=== PATIENT | female | born 1965 | race Caucasian/White ===

== ENCOUNTER 2020-10-23 15:11 | Emergency (ER) | payer BC, SELFPAY ==
--- NOTE | ~2020-10-23 | XR_ITS ---
EXAMINATION: XR lumbar spine min 4V EXAM DATE: 10/23/2020 17:23 INDICATION: No known recent injury provided at this time. Pain of the lumbosacral region. TECHNIQUE: Lumber spine frontal, lateral, bilateral oblique projections. Coned down frontal and lat eral L5-S1 lumbar projections for interpretation. There is no prior study for comparison. FINDINGS: There is severe lower lumbar facet arthropathy, moderate mid lumbar facet arthropathy. Ther e is about 5 mm anterolisthesis L4 on L5. There is mild to moderate lumbar disc disease. There is low er thoracic diffuse idiopathic skeletal hyperostosis. No spondylolysis suspected. Sacrum, sacroiliac joints, sacral arcuate lines are intact. 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 Paraspinal soft tissue is unremarkable. IMPRESSION: 1. Severe lower lumbar facet arthropathy. 2. Grade 1 anterolisthesis L4 on L5. 3. No acute findings. Reviewed, dictated and finalized at location A.
[2020-10-23 15:14] VITALS: BP 126/72; PULSE 56; RESP 18; TEMP 36.8; O2SAT 100
--- NOTE | 2020-10-23 16:37 | ED.GENADULT ---
HPI - General Adult General Chief complaint: Back Pain/Injury Stated complaint: Back locking up Time Seen by Provider: 10/23/20 15:24 Source: patient, family and RN notes reviewed Mode of arrival: ambulatory Limitations: no limitations History of Present Illness HPI narrative: Patient is a 55-year-old female who presents to emergency department for evaluation of low back pain has been present for over 10 days has been seen by primary care for this and has been taking gabapentin ibuprofen and tramadol patient notes feeling spasms and that her back is locked up patient denies injury or trauma patient presents per private vehicle with no distress but appears uncomfortable patient has her with her on arrival as well. Related Data Allergies Allergy/AdvReac Type Severity Reaction Status Date / Time latex Allergy Intermediate SNEEZING/WATERY Verified 02/20/19 22:10 EYES Review of Systems Review of Systems: All systems reviewed & are unremarkable except as noted in HPI and below PMFSH Past Medical History Medical History (Updated 10/23/20 @ 18:44 by Leno Aguirre PA-C) Arthritis Obesity Surgical History Surgical History (Updated 10/23/20 @ 18:42 by Leno Aguirre PA-C) H/O section Family History Family History (Updated 01/10/16 @ 23:19 by DOCTOR UNKNOWN) Father Hypertension Cerebrovascular accident Family history of heart disease in male family member before age 55 Mother Hypertension Family history of Alzheimer's disease Family history of diabetes mellitus in first degree relative Family history of heart disease in male family member before age 55 Social History Social History Second hand tobacco smoke exposure: No Smoking end date: 06/14/94 Alcohol intake: never Exam Narrative: Exam Narrative: GENERAL: Well-appearing, obese, uncomfortable and in no acute distress. HEAD: Normocephalic, atraumatic. EYES: PERRLA and EOMI. ENT: Nares clear, no rhinorrhea or epistaxis. Mucous membranes moist. CHEST: Clear to auscultation. No respiratory distress. No wheezes rales or rhonchi HEART: Regular rate and rhythm. No murmur heard. Normal peripheral pulses. EXTREMITIES: Normal range of motion. No edema. Tenderness of the lower lumbar region no deformities no rash SKIN: Warm, dry, no rash. NEURO: No focal deficits. Alert and oriented x3. Normal speech and gait PSYCH: Normal mood and affect. Course Course Emergency Course: Patient in the room with her continues to feel uncomfortable has been made aware of her case findings treatment plan and diagnosis has been advised to discontinue taking ibuprofen or ibuprofen related products has been hydrated and will be given medications for her symptoms with follow-up with primary care. Patient agrees with this plan and will follow with primary care tomorrow for further evaluation Vital Signs Vital signs: Vital Signs Temperature 98.2 F 10/23/20 15:14 Pulse Rate 56 L 10/23/20 15:14 Respiratory Rate 18 10/23/20 15:14 Blood Pressure 126/72 10/23/20 15:14 Pulse Oximetry 100 10/23/20 15:14 Temperature 98.2 F 10/23/20 15:14 Pulse Rate 56 L 10/23/20 15:14 Respiratory Rate 18 10/23/20 15:14 Blood Pressure 126/72 10/23/20 15:14 Pulse Oximetry 100 10/23/20 15:14 Medical Decision Making [facility] Narrative Medical decision making narrative: Patients pain is positional in nature and localized to back without signs of cord compression or cauda equina based on neurological exam, skeletal exam and history. No fever or other significant factors to suggest osteomyelitis or spinal epidural abscess. No symptoms or signs to suggest pain is referred from abdominal or / cardiopulmonary sources. No pulsatile masses noted on exam. Patient ambulates with steady gait and is stable for outpatient management given case findings. Vital Signs Vital Signs: Vital Signs Temperature 98.2 F 10/23/20 15:14 Pulse R
[2020-10-23 17:15] LABS: Add Urine Microscopic? YES; Appearance Urine Cloudy (Clear); Bacteria Urine Trace /hpf; Bilirubin Urine Negative (Negative); Blood Urine Negative (Negative); Color Urine Yellow (Yellow); Glucose Urine UA Negative (Negative); Ketones Urine Negative (Negative); Leukocyte Esterase Ur Trace LEU/UL (Negative); Mucus Urine Moderate /lpf; Nitrate Urine Negative (Negative); Protein Urine 2+ mg/dL (Negative); Squamous Epithelial Cell Urine Moderate /hpf (Few); Urobilinogen Urine Negative mg/dL (<2.0)
[2020-10-23 18:01] LABS: Anion Gap 2 mmol/L (8-16); Blood Urea Nitrogen 26 mg/dL (7-17); Calcium 8.9 mg/dL (8.4-10.2); Carbon Dioxide 31 mmol/L (22-30); Chloride 107 mmol/L (98-107); Estimated CRCL calculation 69 ml/min; Estimated Glomerular Filt Rate 57; Glucose 99 mg/dL (65-105); Potassium 4.8 mmol/L (3.4-5.0); Sodium 140 mmol/L (137-145)
[2020-10-23 18:07] LABS: Basophils Percent Auto 0.4 % (0.2-1.2); Eosinophils Absolute Auto 0.2 K/mm3 (0-0.3); Eosinophils Percent Auto 2.6 % (0-4.4); Hematocrit 36.7 % (37.0-47.0); Hemoglobin 11.8 g/dL (12.0-15.0); Immature Granulocyte Absolute 0.06 K/mm3 (0.00-0.031); Immature Granulocyte Percent A 0.9 % (0-0.5); Lymphocytes Absolute Auto 1.62 K/mm3 (0.9-3.2); Lymphocytes Percent Auto 23.5 % (18.3-44.2); Mean Corpuscular HGB Conc 32.2 g/dl (32-36); Mean Corpuscular Hemoglobin 28.1 pg (26-34); Mean Corpuscular Volume 87.4 fl (80-100); Mean Platelet Volume 9.8 fl (7.4-10.4); Monocytes Absolute Auto 0.5 K/mm3 (0.1-0.6); Monocytes Percent Auto 7.6 % (2.6-8.5); Neutrophils Absolute Auto 4.5 K/mm3 (1.3-6.7); Platelet Count Result 214 k/mm3 (150-375); Red Cell Distribution Width 14.6 % (11.5-14.5); White Blood Count 6.9 K/mm3 (4.5-10.0)
[2020-10-23] MEDS: diazePAM (*CRX) 5 MG TABLET PO (18:38)
[2020-10-23] MEDS: HYDROcodone/acetaminophen (*CRX) 5-325 MG TABLET 1 TAB PO (18:39)
[2020-10-23] MEDS: SODIUM CHLORIDE 0.9% IV 1,000 ML 999 ML IV CONT (18:39)
[2020-10-23] MEDS: LIDOCAINE 5% PATCH 1 PATCH TRANSDERM (19:00)
== END 2020-10-23 19:30 | disposition home or self-care (01) ==
PROVIDERS: Emergency Medicine Emergency Medical Services; Emergency Provider Emergency Medicine; PCP Internal Medicine Gastroenterology
DX: M54.5 Low back pain (principal); M19.90 Unspecified osteoarthritis, unspecified site
CPT/HCPCS: 36415; 72110; 80048; 81001; 85025; 96360; 99283; A9270; J7030

== ENCOUNTER 2021-03-22 20:59 | Emergency (ER) | payer BC, SELFPAY ==
[2021-03-22] VITALS (16 sets, daily range): BP systolic 119–183; BP diastolic 67–77; PULSE 63–73; RESP 14–22; TEMP 36.6; O2SAT 97–100
--- NOTE | ~2021-03-22 | CT_ITS ---
EXAMINATION: CT brain wo con DATE: 03/22/2021 23:41 INDICATION: Intermittent frontal headache. Dizziness. TECHNIQUE: Computed tomography (CT) of the head was performed without intravenous contrast. The mA wa s adjusted according to patient size. Iterative reconstruction technique was employed. Exam dose: 60 5.33 mGy-cm total exam DLP. COMPARISON: 02/20/2019 CT brain FINDINGS: Bilateral carotid siphon internal carotid artery calcifications. There is nonspecific diminished attenuation of the cerebral white matter, likely due to chronic small vessel ischemic changes. No intracranial mass lesion or hemorrhage or cerebrovascular accident is evident. No midline shift or mass effect. Normal ventricular size. No subdural or epidural hematoma is detected. The mastoid air cells are normally developed and aerated. The paranasal sinuses included in the exami nation are unremarkable. IMPRESSION: Cerebral atherosclerosis; no acute intracranial finding Reviewed, dictated and finalized at [facility]. Reviewed, dictated and finalized at location A.
--- NOTE | 2021-03-22 23:24 | ED.GENADULT ---
HPI - General Adult General Chief complaint: Headache Stated complaint: Headaches Time Seen by Provider: 03/22/21 22:40 History of Present Illness HPI narrative: Patient a 56-year-old female presents the emergency department with chief complaint of headache. Patient states she has had headaches before in the past but over the last week she has had several episodes where she has a sudden onset of a vice national sales associate type feeling in her head patient reports this feeling lasted for about a minute and then resolves. The patient states she had another episode this evening she denied any focal neurological deficits denied any weakness in the arms or legs denies any change in speech. Patient states that by the time she arrived to the emergency department her symptoms have resolved and currently is asymptomatic Related Data Allergies Allergy/AdvReac Type Severity Reaction Status Date / Time latex Allergy Intermediate SNEEZING/WATERY Verified 03/22/21 22:06 EYES Review of Systems Review of Systems: A 10 system review of systems was completed on the patient and is negative except for what is stated in the HPI. Nursing and ancillary documentation was reviewed. PMFSH Past Medical History Medical History Arthritis Obesity Surgical History Surgical History H/O section Family History Family History Father Hypertension Cerebrovascular accident Family history of heart disease in male family member before age 55 Mother Hypertension Family history of Alzheimer's disease Family history of diabetes mellitus in first degree relative Family history of heart disease in male family member before age 55 Social History Social History Second hand tobacco smoke exposure: No Smoking end date: 06/14/94 Alcohol intake: never Exam Narrative: GENERAL: Well-appearing, well-nourished, and in no acute distress. HEAD: Normocephalic, atraumatic. EYES: PERRLA and EOMI. ENT: Nares clear, no rhinorrhea or epistaxis. Mucous membranes moist. NECK: Supple. CHEST: Clear to auscultation. No respiratory distress. HEART: Regular rate and rhythm. No murmur heard. Normal peripheral pulses. ABDOMEN: Soft, nontender, nondistended, normal active bowel sounds. EXTREMITIES: Normal range of motion. No edema. SKIN: Warm, dry, no rash. NEURO: No focal deficits. Alert and oriented x3. PSYCH: Normal mood and affect. Course Vital Signs Vital signs: Vital Signs Temperature 36.6 C 03/22/21 21:32 Pulse Rate 73 03/22/21 21:32 Respiratory Rate 14 03/22/21 21:32 Blood Pressure 183/71 H 03/22/21 21:32 Pulse Oximetry 100 03/22/21 21:32 Temperature 36.6 C 03/22/21 21:32 Pulse Rate 64 03/22/21 23:38 Respiratory Rate 17 03/22/21 23:38 Blood Pressure 143/73 H 03/22/21 23:16 Pulse Oximetry 98 03/22/21 23:38 Medical Decision Making Vital Signs Vital Signs: Vital Signs Temperature 36.6 C 03/22/21 21:32 Pulse Rate 73 03/22/21 21:32 Respiratory Rate 14 03/22/21 21:32 Blood Pressure 183/71 H 03/22/21 21:32 Pulse Oximetry 100 03/22/21 21:32 Temperature 36.6 C 03/22/21 21:32 Pulse Rate 64 03/22/21 23:38 Respiratory Rate 17 03/22/21 23:38 Blood Pressure 143/73 H 03/22/21 23:16 Pulse Oximetry 98 03/22/21 23:38 Discharge Plan Discharge Clinical Impression: Headache Qualifiers: Headache type: unspecified Headache chronicity pattern: unspecified pattern Intractability: not intractable Qualified Code(s): R51.9 - Headache, unspecified Patient Disposition: Home, Self-Care Condition: Stable Instructions: Antibiotic Form, Acute Headache (ED) Follow-up/Referrals: Kelechi,Terri Hoang MD [Primary Care Provider] - Time of Disp
[2021-03-23] VITALS: PULSE 66; RESP 20
[2021-03-23 00:15] VITALS: PULSE 68; RESP 20
[2021-03-23 00:30] VITALS: PULSE 69; RESP 19
[2021-03-23 00:45] VITALS: PULSE 70; RESP 19
[2021-03-23 01:00] VITALS: PULSE 69; RESP 22
[2021-03-23 01:15] VITALS: PULSE 70; RESP 18
== END 2021-03-23 02:16 | disposition home or self-care (01) ==
PROVIDERS: Emergency Provider Emergency Medicine; PCP Internal Medicine Gastroenterology
DX: R51.9 Headache, unspecified (principal)
CPT/HCPCS: 70450; 99284

== ENCOUNTER 2021-09-02 10:28 | Emergency (ER) | payer BC, SELFPAY ==
--- NOTE | ~2021-09-02 | XR_ITS ---
XR knee LT min 4V 09/02/2021 10:53 Indication: Left knee pain Procedure: 4 views left knee Comparison: 03/15/2013 Findings: There is moderate-severe tricompartment osteoarthritis of the left knee. No fracture or tra umatic malalignment. No significant joint effusion. No foreign bodies. Impression: 1: Moderate-severe tricompartment osteoarthritis of the left knee. Reviewed, dictated and finalized at location A. Impression: 1: Moderate-severe tricompartment osteoarthritis of the left knee.
[2021-09-02 10:35] VITALS: BP 139/62; PULSE 63; RESP 14; TEMP 36.6; O2SAT 100
--- NOTE | 2021-09-02 11:52 | ED.LOWEXIN ---
HPI - Extremity Injury (Lower) General Chief Complaint: Extremity Injury, Lower Stated Complaint: left knee pain Time Seen by Provider: 09/02/21 11:37 Source: patient History of Present Illness HPI Narrative: Patient presents with left knee pain. Points when she was walking around tripped on a shoelace and felt a pop in her left knee. She went to work and continue to monitoring her symptoms however pain today seem to be more severe so she came to the ER for evaluation. Pain is achy, constant, worse with moving her knee. Reports her knee is more swollen. Pain does not radiate. She denies falling or striking her head Related Data Allergies Allergy/AdvReac Type Severity Reaction Status Date / Time latex Allergy Intermediate SNEEZING/WATERY Verified 03/22/21 22:06 EYES Review of Systems Review of Systems: CONSTITUTIONAL: Denies fever, chills, or sweats. EYES: Denies visual changes, redness, or discharge. ENT: Denies rhinorrhea, congestion, sore throat, or otalgia. CARDIOVASCULAR: Denies chest pain, palpitations, or edema. RESPIRATORY: Denies cough or dyspnea. GASTROINTESTINAL: Denies abdominal pain, nausea, vomiting, or diarrhea. GENITOURINARY: Denies dysuria or hematuria. SKIN: Denies rash or itching. MUSCULOSKELETAL: Denies back pain, joint pain, or myalgia. NEUROLOGIC: Denies headache, numbness, dizziness, or weakness. PSYCHIATRIC: Denies anxiety or depression. All systems reviewed & are unremarkable except as noted in HPI and below PMFSH Past Medical History Medical History Arthritis Obesity Surgical History Surgical History H/O section Family History Family History Father Hypertension Cerebrovascular accident Family history of heart disease in male family member before age 55 Mother Hypertension Family history of Alzheimer's disease Family history of diabetes mellitus in first degree relative Family history of heart disease in male family member before age 55 Social History Social History Second hand tobacco smoke exposure: No Smoking end date: 06/14/94 Alcohol intake: never Exam Narrative: GENERAL: Well-appearing, well-nourished, and in no acute distress. HEAD: Normocephalic, atraumatic. EYES: PERRLA and EOMI. ENT: Nares clear, no rhinorrhea or epistaxis. Mucous membranes moist. NECK: Supple. No masses. No JVD EXTREMITIES: Normal range of motion. Moderate diffuse left knee pain with edema no open or draining wounds no focal bony tenderness no obvious deformity SKIN: Warm, dry, no rash. NEURO: No focal deficits. Alert and oriented x3. PSYCH: Normal mood and affect. Course Vital Signs Vital signs: Vital Signs Temperature 36.6 C 09/02/21 10:35 Pulse Rate 63 09/02/21 10:35 Respiratory Rate 14 09/02/21 10:35 Blood Pressure 139/62 09/02/21 10:35 Pulse Oximetry 100 09/02/21 10:35 Temperature 36.6 C 09/02/21 10:35 Pulse Rate 63 09/02/21 10:35 Respiratory Rate 14 09/02/21 10:35 Blood Pressure 139/62 09/02/21 10:35 Pulse Oximetry 100 09/02/21 10:35 MDM - Extremity Injury (Lower) MDM Narrative Medical decision making narrative: H&P as above, vss, pt looks clinically well, exam with diffuse knee pain and edema, imaging without acute process, additional labs/img considered, symptomatic relief available as needed, on reevaluation pt continues to looks clinically well. Suspect strain, dns fracture, dislocation, major neurovascular compromise. plan to tx/monitor as op w/ pcm f/u findings/plan discussed with pt, pt agree/comfortable with plan, return precautions given Imaging Data Radiologist's impression: Impressions Knee X-Ray 09/02/21 11:01 Impression: 1: Moderate-severe tricompartment osteoarthritis of the left knee.
== END 2021-09-02 12:41 | disposition home or self-care (01) ==
LOC: ANHED 12:06
PROVIDERS: Emergency Provider Emergency Medicine; PCP Physician Assistant
DX: S83.92XA Sprain of unspecified site of left knee, initial encounter (principal); M19.90 Unspecified osteoarthritis, unspecified site; E66.9 Obesity, unspecified; Z68.42 Body mass index [BMI] 45.0-49.9, adult; Z87.891 Personal history of nicotine dependence; W01.0XXA Fall on same level from slipping, tripping and stumbling without subsequent striking against object, initial encounter
CPT/HCPCS: 73564; 99283

== ENCOUNTER 2021-12-01 21:16 | Inpatient (IN) | payer BC, SELFPAY ==
--- NOTE | ~2021-12-01 | CT_ITS ---
EXAMINATION: CT abdomen pelvis wo/w con DATE: 12/03/2021 10:50 INDICATION: Microscopic hematuria TECHNIQUE: Computed tomography (CT) of the abdomen and pelvis was performed without intravenous contr ast. CT of the abdomen and pelvis was then performed with a total of 130 mL Omnipaque 300 intravenous contrast using a double-bolus technique for simultaneous opacification of the renal parenchyma and r enal collecting system. The dose-length product (DLP) was 2809.47 mGy-cm. Automated exposure control and iterative reconstruction technique were employed. COMPARISON: 12/02/2021 FINDINGS: The lung bases are clear. The heart size is normal. The liver, spleen, pancreas The gallbla dder is surgically absent. There is mild enlargement of the common bile duct and central intrahepatic ducts which is likely due to post cholecystectomy state. Punctate nonobstructing left nephrolithiasi s is again noted. No stones are identified in the right kidney, the ureters, or bladder. There is no hydronephrosis or hydroureter. No persistent hyperattenuating material is seen in the right renal pel vis on the noncontrast portion of the examination. There is no suspicious renal or urothelial lesion. A peripelvic cyst is noted in the right kidney. No pathologically enlarged abdominal or pelvic lymph nodes are identified. There is no free intraperitoneal gas or evidence of bowel obstruction. Colonic diverticulosis is present without evidence of diverticulitis. A moderate volume of colonic stool is present. There is mild lumbar spondylosis. IMPRESSION: 1. No suspicious renal or urothelial lesion identified. 2. Punctate left nephrolithiasis. Reviewed, dictated and finalized at location A.
--- NOTE | ~2021-12-01 | CT_ITS ---
EXAMINATION: CT brain wo con DATE: 12/01/2021 22:39 INDICATION: sudden onset dizziness, DUKES . TECHNIQUE: Computed tomography (CT) of the head was performed without intravenous contrast. The mA wa s adjusted according to patient size. Iterative reconstruction technique was employed. The dose-lengt h product was 605.33 mGy-cm. COMPARISON: 03/22/2021. FINDINGS: No acute intracranial hemorrhage or extra-axial fluid collection. No hydrocephalus, mass, or herniation. No acute ischemic infarct. Unremarkable dural venous sinus attenuation. No acute osseous abnormality. The aerated spaces are clear. Atherosclerotic intracranial calcifications. IMPRESSION: No acute intracranial process. Reviewed, dictated and finalized at location K.
--- NOTE | ~2021-12-01 | MR_ITS ---
EXAMINATION: MR brain/brain stem wo/w con DATE: 12/02/2021 09:50 INDICATION: Dizziness. TECHNIQUE: Magnetic resonance imaging (MRI) of the brain and brainstem was performed without and with 20 mL MultiHance intravenous contrast. COMPARISON: Head CT 12/01/2021 FINDINGS: There are scattered areas of nonspecific increased T2-weighted signal intensity in the cere bral white matter, which is within normal limits for the patient's age. There is no intracranial hemo rrhage, acute infarction, or abnormal intracranial mass lesion. The ventricles are normal in size. Th e paranasal sinuses are clear. The orbits are normal. There is a small right mastoid effusion. IMPRESSION: 1. Normal aging brain. Reviewed, dictated and finalized at location A. IMPRESSION: 1. Normal aging brain.
--- NOTE | ~2021-12-01 | XR_ITS ---
EXAMINATION: XR lumbar spine 2-3V DATE: 12/04/2021 19:32 INDICATION: Left back pain TECHNIQUE: Anteroposterior and lateral views of the lumbar spine, and cone-down lateral view of the l umbosacral junction were obtained. COMPARISON: 10/23/2020 FINDINGS: There are 4 mm of anterolisthesis of L4 on L5. The vertebral heights are normal. There is m ild loss of intervertebral disc space height throughout the lumbar spine. There is severe facet osteo arthritis in the lower lumbar spine. IMPRESSION: 1. Mild lumbar spondylosis without acute findings. Reviewed, dictated and finalized at location F.
--- NOTE | ~2021-12-01 | CT_ITS ---
EXAMINATION: CT abdomen pelvis wo con DATE: 12/02/2021 08:58 INDICATION: Diverticulitis TECHNIQUE: Computed tomography (CT) of the abdomen and pelvis was performed without intravenous contr ast. The dose-length product (DLP) was 1316.34 mGy-cm. Automated exposure control and iterative recon struction technique were employed. COMPARISON: 12/20/2018 FINDINGS: The lung bases are clear. The heart size is normal. The liver, spleen, pancreas, and adrena l glands are normal. The gallbladder is surgically absent. There is mild enlargement of the common bi le duct and central intrahepatic ducts which is likely due to post cholecystectomy state. There is hy perattenuating material in the right renal pelvis and right kidney lower pole. There also appears to be mildly hyperattenuating material in the right ureter. There are punctate nonobstructing stones of the left kidney. No pathologically enlarged abdominal or pelvic lymph nodes are identified. There is no free intraperitoneal gas or evidence of bowel obstruction. Colonic diverticulosis is present witho ut evidence of diverticulitis. There is mild lumbar spondylosis. There is an umbilical hernia contain ing fat. IMPRESSION: 1. Diverticulosis without evidence of diverticulitis. 2. Mildly hyperattenuating material in the right renal pelvis, right kidney lower pole, and right ure ter which could reflect urothelial lesion and/or hematoma. Reviewed, dictated and finalized at location A. IMPRESSION: 1. Diverticulosis without evidence of diverticulitis. 2. Mildly hyperattenuating material in the right renal pelvis, right kidney low er pole, and right ureter which could reflect urothelial lesion and/or hematoma .
[2021-12-01 21:28] VITALS: BP 140/71; PULSE 64; RESP 18; TEMP 36.4; O2SAT 98
--- NOTE | 2021-12-01 22:27 | ECG_ITS ---
Measurements Intervals Macy Rate: 61 P: 33 NH: 167 QRS: 14 QRSD: 105 T: 18 QT: 427 QTc: 434 Interpretive Statements SINUS RHYTHM NO PREVIOUS ECG AVAILABLE FOR COMPARISON Electronically Signed On 12-02-2021 10:04:08 CDT by Yefri Rasmussen M.D.
[2021-12-01 22:54] VITALS: BP 133/74; BP 133/83; PULSE 65; PULSE 73
[2021-12-01] MEDS: MECLIZINE HCL 25 MG TABLET PO (22:54)
[2021-12-01] MEDS: ONDANSETRON INJ 4 MG/2 ML VIAL IV PUSH (22:54)
--- NOTE | 2021-12-01 22:54 | ED.DIZZY ---
HPI - Dizziness General Chief Complaint: Dizziness <Iraida Poe PA-C - Last Filed: 12/02/21 03:59> Stated Complaint: Dizzy, moralez, vomiting <HOLLAND Renteria Last Filed: 12/02/21 03:59> Time Seen by Provider: 12/01/21 21:49 <HOLLAND Renteria Last Filed: 12/02/21 03:59> Source: patient <HOLLAND Renteria Last Filed: 12/02/21 03:59> Mode of arrival: ambulatory <HOLLAND Renteria Last Filed: 12/02/21 03:59> Limitations: no limitations <HOLLAND Renteria Last Filed: 12/02/21 03:59> History of Present Illness HPI Narrative: Patient is a 56-year-old female who presents the ED with report of dizziness. Patient reports she was cooking today around 4:30 PM when she suddenly developed dizziness. She describes the dizziness as a lightheaded sensation. She denies any sensation of the room spinning or moving, but does states she felt off balance at that time. No focal weakness of arm or leg. Dizziness is worse with walking, standing upright, opening eyes. She also reports having nausea and a headache, but denies vomiting. Denies any chest pain, difficulty breathing, blurry or double vision, abdominal pain, numbness, tingling. Patient mentions she had an episode of L lower back pain last week. She told her PCP about this pain and was told it could be diverticulitis. She has Hx of this. She was started on Cipro and Flagyl on , but did not have imaging. <Iraida Poe PA-C - Last Filed: 12/02/21 03:59> Related Data Home Medications: Home Medications Medication Instructions Recorded Confirmed buspirone 10 mg tablet 10 mg PO BID 12/02/21 12/02/21 ciprofloxacin HCl 500 mg tablet DAILY 12/02/21 ergocalciferol (vitamin D2) 1,250 1,250 mcg PO 2XW 12/02/21 12/02/21 mcg (50,000 unit) capsule gabapentin 400 mg capsule 400 mg PO TID 12/02/21 12/02/21 ibuprofen 800 mg tablet 800 mg PO TIDWMEAL 12/02/21 12/02/21 metronidazole 500 mg tablet 500 mg PO TID 12/02/21 12/02/21 solifenacin 10 mg tablet 10 mg PO DAILY 12/02/21 12/02/21 tramadol 50 mg tablet 50 mg PO TID 12/02/21 12/02/21 <Iraida Poe PA-C - Last Filed: 12/02/21 03:59> Allergies/Adverse Reactions: Allergies Allergy/AdvReac Type Severity Reaction Status Date / Time latex Allergy Intermediate SNEEZING/WATERY Verified 12/01/21 21:48 EYES <Iraida Poe PA-C - Last Filed: 12/02/21 03:59> Review of Systems Review of Systems: CONSTITUTIONAL: Denies fever, chills, or sweats. EYES: Denies visual changes, redness, or discharge. ENT: Denies rhinorrhea, congestion, sore throat. CARDIOVASCULAR: Denies chest pain, palpitations, or edema. RESPIRATORY: Denies cough or dyspnea. GASTROINTESTINAL: Reports nausea. Denies abdominal pain, vomiting, or diarrhea. GENITOURINARY: Denies dysuria or hematuria. NEUROLOGIC: Reports headache, dizziness/lightheadedness. Denies tingling, numbness, or focal weakness. <Iraida Poe PA-C - Last Filed: 12/02/21 03:59> All systems reviewed & are unremarkable except as noted in HPI and below <Iraida Poe PA-C - Last Filed: 12/02/21 03:59> [facility] Past Medical History Medical History: Medical History (Updated 12/02/21 @ 03:48 by Iraida Poe PA-C) Arthritis History of diverticulitis Neuropathy Obesity <Iraida Poe PA-C - Last Filed: 12/02/21 03:59> Surgical History Surgical History: Surgical History H/O section <Iraida Poe PA-C - Last Filed: 12/02/21 03:59> Family History Family History: Family History Father Hypertension Cerebrovascular accident Family history of heart disease in male family member before age 55 Mother Hypertension Family history of Alzheimer's disease Family history of diabetes mellitus in first degree relative Family history of heart disease in male family member before ag
[2021-12-01 22:57] VITALS: BP 142/83; PULSE 67
[2021-12-01 23:14] LABS: Basophils Percent Auto 0.5 % (0.2-1.2); Eosinophils Absolute Auto 0.1 K/mm3 (0-0.3); Eosinophils Percent Auto 2.1 % (0-4.4); Hematocrit 32.8 % (37.0-47.0); Hemoglobin 10.5 g/dL (12.0-15.0); Immature Granulocyte Absolute 0.02 K/mm3 (0.00-0.031); Immature Granulocyte Percent A 0.3 % (0-0.5); Lymphocytes Percent Auto 13.2 % (18.3-44.2); Mean Corpuscular Hemoglobin 28.5 pg (26-34); Mean Corpuscular Volume 89.1 fl (80-100); Monocytes Absolute Auto 0.5 K/mm3 (0.1-0.6); Monocytes Percent Auto 8.4 % (2.6-8.5); Neutrophils Absolute Auto 4.6 K/mm3 (1.3-6.7); Neutrophils Percent Auto 75.5 % (45.5-73.1); Platelet Count Result 146 k/mm3 (150-375); Red Blood Count 3.68 M/mm3 (4.2-5.4); Red Cell Distribution Width 14.6 % (11.5-14.5); White Blood Count 6.1 K/mm3 (4.5-10.0)
[2021-12-01] MEDS: SODIUM CHLORIDE 0.9% IV 1,000 ML 999 ML IV CONT (23:15)
[2021-12-01 23:17] LABS: Appearance Urine Clear (Clear); Bilirubin Urine Negative (Negative); Color Urine Yellow (Yellow); Glucose Urine UA Negative (Negative); Ketones Urine Negative (Negative); Leukocyte Esterase Ur Negative LEU/UL (Negative); Nitrate Urine Negative (Negative); Protein Urine Negative (Negative); Urobilinogen Urine 0.2 mg/dL (<2.0)
[2021-12-01 23:27] LABS: Add Urine Microscopic? YES; Blood Urine Trace (Negative)
[2021-12-01 23:28] LABS: Alanine Aminotransferase 19 U/L (6-35); Albumin Level 3.6 g/dL (3.5-5.1); Alkaline Phosphatase 77 U/L (38-126); Anion Gap 3 mmol/L (8-16); Aspartate Amino Transferase 29 U/L (14-36); Bilirubin,Total 0.5 mg/dL (0.2-1.3); Blood Urea Nitrogen 26 mg/dL (7-17); Calcium 8.2 mg/dL (8.4-10.2); Carbon Dioxide 29 mmol/L (22-30); Chloride 108 mmol/L (98-107); Estimated CRCL calculation 60 ml/min; Estimated Glomerular Filt Rate 51; Glucose 127 mg/dL (65-110); Potassium 3.5 mmol/L (3.4-5.0); Sodium 140 mmol/L (137-145)
[2021-12-01 23:32] LABS: Mucus Urine Rare /lpf; Squamous Epithelial Cell Urine Rare /hpf (Few); WBC Urine 0-3 /hpf
[2021-12-01 23:39] LABS: Troponin I < 0.012 ng/mL (0.000-0.034)
[2021-12-02] VITALS (7 sets, daily range): BP systolic 109–152; BP diastolic 54–87; PULSE 60–78; RESP 14–18; TEMP 35.8–37.2; O2SAT 96–99; BMI 46.3; BMI 48.4
--- NOTE | 2021-12-02 01:31 | PC.NURSE ---
Pt able to ambulate with one assist. Reports dizziness has not improved.
[2021-12-02] MEDS: SODIUM CHLORIDE 0.9% IV 1,000 ML 999 ML IV CONT (02:26)
--- NOTE | 2021-12-02 04:31 | PM.IMHP ---
H&P: HPI History of Present Illness Date/Time: 12/02/21 04:31 Chief Complaint: Altered mental status Narrative: This is a 56-year-old female with past medical history significant for morbid obesity, generalized anxiety disorder, chronic pain, neuropathy, patient has recently placed on ciprofloxacin and Flagyl course in the outpatient setting she comes in to the emergency room after she has sudden onset dizziness while standing in her kitchen preparing in the evening meal patient is obtunded difficult to obtain history from her. Preliminary workup has been essentially nonrevealing. Patient is been placed in observation for further evaluation management and treatment. Review of Systems Review of Systems: ROS unobtainable: Yes unobtainable due to mental status (Obtundation, lethargy.) PMFSH Past Medical History Medical History (Updated 12/02/21 @ 04:48 by Aditya De La Cruz MD) Arthritis History of diverticulitis Neuropathy Obesity Surgical History Surgical History H/O section Family History Family History Father Hypertension Cerebrovascular accident Family history of heart disease in male family member before age 55 Mother Hypertension Family history of Alzheimer's disease Family history of diabetes mellitus in first degree relative Family history of heart disease in male family member before age 55 Social History Social History Smoking status: Never smoker Second hand tobacco smoke exposure: No Smoking end date: 06/14/94 Alcohol intake: never Substance use: never Substance use type: does not use Spiritual care concerns: No Meds Home Medications and Allergies Home Medications Medication Instructions Recorded Confirmed Type buspirone 10 mg tablet 10 mg PO BID 12/02/21 12/02/21 History ciprofloxacin HCl 500 mg tablet DAILY 12/02/21 History ergocalciferol (vitamin D2) 1,250 1,250 mcg PO 2XW 12/02/21 12/02/21 History mcg (50,000 unit) capsule gabapentin 400 mg capsule 400 mg PO TID 12/02/21 12/02/21 History ibuprofen 800 mg tablet 800 mg PO TIDWMEAL 12/02/21 12/02/21 History metronidazole 500 mg tablet 500 mg PO TID 12/02/21 12/02/21 History solifenacin 10 mg tablet 10 mg PO DAILY 12/02/21 12/02/21 History tramadol 50 mg tablet 50 mg PO TID 12/02/21 12/02/21 History Allergies Allergy/AdvReac Type Severity Reaction Status Date / Time latex Allergy Intermediate SNEEZING/WATERY Verified 12/01/21 21:48 EYES Vital Signs Vital Signs - 24 hr 12/01/21 21:28 12/01/21 22:54 12/01/21 22:54 Temperature 97.6 F Pulse Rate 64 65 73 Respiratory Rate 18 Blood Pressure 140/71 133/74 133/83 Pulse Oximetry 98 Oxygen Delivery Room Air 12/01/21 22:57 12/02/21 01:08 12/02/21 02:42 Temperature Pulse Rate 67 63 60 Respiratory Rate 15 15 Blood Pressure 142/83 H 136/73 139/84 Pulse Oximetry 97 98 Oxygen Delivery 12/02/21 03:17 12/02/21 03:35 Temperature 97 F L Pulse Rate 62 78 Respiratory Rate 14 18 Blood Pressure 137/85 142/73 H Pulse Oximetry 99 97 Oxygen Delivery Exam Narrative: Patient is laying in bed Const: General: comfortable, no acute distress, well developed, alert and awake Nutritional Appearance: obese morbidly obese Orientation/consciousness: oriented to person and lethargic HENMT: Head: normal to inspection, normocephalic and atraumatic Ears: hearing grossly normal bilaterally Face and sinus: normal facial exam Eyes: General: appearance normal, both eyes and all related structures Alignment and Position: alignment normal Sclera: sclerae normal Pupils: Equal, round and reactive pupils present and Pupil size comments bilaterally 3 EOM: EOMs intact bilaterally Neck: Neck: full ROM, no lymphadenopathy and no JVD Thyroid: thyroid normal Lymphatic: no lymp
[2021-12-02] MEDS: DEXTROSE 5%/0.45% SOD CHL 1,000 ML 100 ML IV CONT (05:27)
[2021-12-02 06:02] LABS: INR 1.1; Prothrombin Time 14.1 Seconds (11.1-14.7)
[2021-12-02 06:03] LABS: Partial Thromboplastin Time 22.9 SECONDS (22.3-36.8)
--- NOTE | 2021-12-02 12:40 | PM.IMPN ---
Progress Note: A&P Assessment and Plan (1) Altered mental status: Code(s): R41.82 - Altered mental status, unspecified Status: Acute Assessment and Plan: Patient with no focalization on physical exam CT of the head is normal MRI brain came back negative Likely medication related, will check urine drug screen Supportive care Continue IV fluids Tylenol for pain Will hold NSAIDs for now. Will also hold her gabapentin and other psychoactive medications (2) Dizziness: Code(s): R42 - Dizziness and giddiness Status: Acute Assessment and Plan: Patient recently started on a combination of ciprofloxacin and Flagyl for diverticulitis treatment in the outpatient setting Suspect drug toxicity Also noted that all 3 blood cell lines have been affected as well white blood cells, red blood cells, and platelets. No signs of bleeding, no petechiae, no ecchymosis, hematomas. Holding Flagyl and ciprofloxacin Continue to monitor (3) Pancytopenia: Code(s): D61.818 - Other pancytopenia Status: Acute Assessment and Plan: Also 3 blood cell lines affected Will continue to monitor Continue to trend Avoid heparin products (4) Diverticulitis: Code(s): K57.92 - Diverticulitis of intestine, part unspecified, without perforation or abscess without bleeding Status: Acute Assessment and Plan: Abdomen is soft Doubtful of acute intra-abdominal catastrophe CT abdomen and pelvis is negative for diverticulitis shows evidence of diverticulosis Also shows some nonspecific abnormality in the right urinary tract likely some bleeding perhaps. Will consult Urology for further evaluation and recommendation UA does show some microscopic hematuria. She however does not have any complaint on the right side whatsoever. (5) Morbid obesity with BMI of 45.0-49.9, adult: Code(s): E66.01 - Morbid (severe) obesity due to excess calories; Z68.42 - Body mass index [BMI] 45.0-49.9, adult Status: Acute Assessment and Plan: Lifestyle and diet modification Subjective Date/time seen: 12/02/21 12:40 Interval history: HPI:This is a 56-year-old female with past medical history significant for morbid obesity, generalized anxiety disorder, chronic pain, neuropathy, patient has recently placed on ciprofloxacin and Flagyl course in the outpatient setting she comes in to the emergency room after she has sudden onset dizziness while standing in her kitchen preparing in the evening meal patient is obtunded difficult to obtain history from her.? Preliminary workup has been essentially nonrevealing.? Patient is been placed in observation for further evaluation management and treatment. 12/02/2021 patient underwent MRI and CT abdomen today. She is more awake reports she started hurting in her left flank. Some nausea but no vomiting. She denies any abdominal pain per se. She is menopausal. No urinary complaints Review of Systems Review of Systems: All systems reviewed & are unremarkable except as noted in HPI and below (HPI) Exam Narrative: GENERAL: Mildly ill appearing, with morbid obesity not in acute distress keeps her eyes open during a conversation HEAD: Normocephalic, atraumatic. EYES: PERRL/EOMI, conjunctivae clear bilaterally NECK: Supple. No adenopathy, no masses. RESPIRATORY: Airway patent, respirations nonlabored. Clear to auscultation bilaterally, no rales, rhonchi, wheezing. CARDIOVASCULAR: Regular rate and rhythm without murmurs, rubs, or gallops. Peripheral pulses 2+ and equal bilaterally. ABDOMINAL: Soft, no specific tenderness to palpation, nondistended, no hepatosplenomegaly. Normoactive BS. MUSCULOSKELETAL: Moves all extremities. Left lumbar paraspinal tenderness SKIN: Warm, dry, normal color. No rashes. NEURO: A&O X3. Speech clear. Following commands. CN II-XII intact. Sensation grossly intact. No ataxic movements. No gross motor deficits PSYCHIATRIC: Appropriate mood and affect
[2021-12-02 13:32] LABS: Basophils Percent Auto 0.6 % (0.2-1.2); Eosinophils Absolute Auto 0.1 K/mm3 (0-0.3); Hematocrit 36.3 % (37.0-47.0); Hemoglobin 11.6 g/dL (12.0-15.0); Immature Granulocyte Absolute 0.02 K/mm3 (0.00-0.031); Immature Granulocyte Percent A 0.4 % (0-0.5); Lymphocytes Absolute Auto 0.79 K/mm3 (0.9-3.2); Lymphocytes Percent Auto 14.6 % (18.3-44.2); Mean Corpuscular Hemoglobin 28.3 pg (26-34); Mean Corpuscular Volume 88.5 fl (80-100); Mean Platelet Volume 9.6 fl (7.4-10.4); Monocytes Absolute Auto 0.5 K/mm3 (0.1-0.6); Monocytes Percent Auto 9.4 % (2.6-8.5); Platelet Count Result 152 k/mm3 (150-375); Red Cell Distribution Width 14.6 % (11.5-14.5); White Blood Count 5.4 K/mm3 (4.5-10.0)
[2021-12-02 13:42] LABS: Lactic Acid Reflex 0.9 mmol/L (0.7-2.0)
[2021-12-02 13:43] LABS: Lipase 16 U/L (23-300)
--- NOTE | 2021-12-02 13:43 | WPDURCON ---
Assessment and Plan Assessment and plan (1) Microscopic hematuria: Code(s): R31.29 - Other microscopic hematuria Status: Acute Assessment and Plan: Incidental finding microscopic hematuria and possible soft tissue in the right renal pelvis on admission for syncope and diverticulitis Will send urine for cytology and get a CT scan of the kidneys with and without contrast., at some point, after all else has resolved, she may require cystoscopy and possible retrograde pyelography (depending on the contrast-enhanced CT findings) Urology Consult Note HPI Date Seen: 12/02/21 Requesting Physician: Sawyer Ndiaye MD Primary Care Provider: Tatiana Conklin, PA Consult Narrative Narrative: Deepa Cross is a 56 year old female without prior significant urological history who has not been seen in our practice previously. She is admitted with for diverticulitis not responding to outpatient therapy and new onset dizziness. During the course of evaluation she was noted to have micro hematuria and a CT scan of the abdomen pelvis without contrast suggest possible clot or soft tissue in her right renal pelvis. The patient has no complaints of right flank pain and has no prior history of urolithiasis pyelonephritis problematic recurrent urinary tract infections or other urological issues. She does report urinary frequency but denies incontinence. She denies episodes of gross hematuria and, again, has not seen a urologist in the past. Review of Systems Constitutional: Constitutional: Denies chills, Denies fatigue, Denies fever(s) and Denies headache(s) Eyes: Eyes: Denies blurry vision ENT: Denies vertigo, Denies dizziness, Denies headache(s) and Denies sore throat Cardiovascular: Cardiovascular: Denies chest pain, Denies syncope, Reports lightheadedness, Denies palpitations, Denies dyspnea and Denies dyspnea on exertion Respiratory: Respiratory: Denies hemoptysis, Denies dyspnea and Denies dyspnea on exertion Gastrointestinal: Gastrointestinal: Reports abdominal pain, Denies melena, Denies bloating, Denies hematochezia, Denies change in bowel habits, Denies change in stool character, Denies constipation, Denies diarrhea and Denies vomiting Genitourinary: Genitourinary: Denies hematuria, Denies urinary frequency, Denies dysuria, Denies urinary hesitancy and Denies urinary urgency Integumentary/Breasts: Skin/Breast: Denies pruritus, Denies lesions and Denies rash Neurologic: Denies confusion, Denies vertigo, Denies dizziness, Denies syncope and Denies headache(s) Psychiatric: Psychiatric: Denies anxiety, Denies change in appetite and Denies confusion Endocrine: Endocrine: Denies fatigue and Denies palpitations PMFSH Past Medical History Medical History (Updated 12/02/21 @ 13:47 by Destin Garcia MD) Arthritis History of diverticulitis Neuropathy Obesity Surgical History Surgical History H/O section Family History Family History Father Hypertension Cerebrovascular accident Family history of heart disease in male family member before age 55 Mother Hypertension Family history of Alzheimer's disease Family history of diabetes mellitus in first degree relative Family history of heart disease in male family member before age 55 Social History Social History Smoking status: Never smoker Second hand tobacco smoke exposure: No Smoking end date: 06/14/94 Alcohol intake: never Substance use: never Substance use type: does not use Spiritual care concerns: No Meds Home Medications and Allergies Home Medications Medication Instructions Recorded Confirmed Type buspirone 10 mg tablet 10 mg PO BID 12/02/21 12/02/21 History ciprofloxacin HCl 500 mg tablet DAILY 12/02/21 History ergocalciferol (vitamin
[2021-12-02 13:44] LABS: Alanine Aminotransferase 20 U/L (6-35); Albumin Level 3.6 g/dL (3.5-5.1); Alkaline Phosphatase 72 U/L (38-126); Anion Gap 4 mmol/L (8-16); Aspartate Amino Transferase 36 U/L (14-36); Bilirubin,Total 0.7 mg/dL (0.2-1.3); Blood Urea Nitrogen 22 mg/dL (7-17); Calcium 8.3 mg/dL (8.4-10.2); Carbon Dioxide 28 mmol/L (22-30); Chloride 110 mmol/L (98-107); Estimated CRCL calculation 55 ml/min; Estimated Glomerular Filt Rate 46; Glucose 96 mg/dL (65-110); Potassium 3.3 mmol/L (3.4-5.0); Sodium 142 mmol/L (137-145)
[2021-12-02] MEDS: PANTOPRAZOLE SODIUM IV 40 MG VIAL IV PUSH (14:19)
[2021-12-02] MEDS: POTASSIUM CHLORIDE 20 MEQ TABLET 40 MEQ PO (17:22)
[2021-12-02 17:58] LABS: Amphetamine Screen Urine Negative (Negative); Barbiturate Screen Urine Negative (Negative); Benzodiazepines Screen Urine Negative (Negative); Cannabinoid Screen Urine Negative (Negative); Cocaine Screen Urine Negative (Negative); Methadone Screen Urine Negative (Negative); Opiate Screen Urine Negative (Negative); Phencyclidine Screen Urine Negative (Negative)
[2021-12-03] MEDS: DEXTROSE 5%/0.45% SOD CHL 1,000 ML 100 ML IV CONT ×2 (05:20→16:02)
[2021-12-03 05:46] VITALS: BP 139/65; PULSE 64; RESP 16; TEMP 36.7; O2SAT 95
[2021-12-03 05:57] LABS: Basophils Percent Auto 0.4 % (0.2-1.2); Eosinophils Absolute Auto 0.1 K/mm3 (0-0.3); Eosinophils Percent Auto 2.7 % (0-4.4); Hematocrit 33.5 % (37.0-47.0); Hemoglobin 10.8 g/dL (12.0-15.0); Immature Granulocyte Absolute 0.01 K/mm3 (0.00-0.031); Immature Granulocyte Percent A 0.2 % (0-0.5); Lymphocytes Absolute Auto 0.98 K/mm3 (0.9-3.2); Lymphocytes Percent Auto 20.5 % (18.3-44.2); Mean Corpuscular HGB Conc 32.2 g/dl (32-36); Mean Corpuscular Hemoglobin 28.5 pg (26-34); Mean Corpuscular Volume 88.4 fl (80-100); Mean Platelet Volume 9.7 fl (7.4-10.4); Monocytes Absolute Auto 0.4 K/mm3 (0.1-0.6); Monocytes Percent Auto 8.4 % (2.6-8.5); Neutrophils Absolute Auto 3.2 K/mm3 (1.3-6.7); Neutrophils Percent Auto 67.8 % (45.5-73.1); Platelet Count Result 160 k/mm3 (150-375); Red Blood Count 3.79 M/mm3 (4.2-5.4); Red Cell Distribution Width 14.6 % (11.5-14.5); White Blood Count 4.8 K/mm3 (4.5-10.0)
[2021-12-03 06:17] LABS: Alanine Aminotransferase 18 U/L (6-35); Albumin Level 3.1 g/dL (3.5-5.1); Alkaline Phosphatase 63 U/L (38-126); Anion Gap 5 mmol/L (8-16); Aspartate Amino Transferase 33 U/L (14-36); Bilirubin,Total 0.7 mg/dL (0.2-1.3); Blood Urea Nitrogen 19 mg/dL (7-17); Carbon Dioxide 25 mmol/L (22-30); Chloride 111 mmol/L (98-107); Estimated CRCL calculation 60 ml/min; Estimated Glomerular Filt Rate 51; Glucose 113 mg/dL (65-110); Magnesium 2.3 mg/dL (1.6-2.3); Potassium 3.7 mmol/L (3.4-5.0); Sodium 141 mmol/L (137-145)
--- NOTE | 2021-12-03 07:12 | WPDUROPN2 ---
Progress Note: A&P Assessment and Plan (1) Microscopic hematuria: Code(s): R31.29 - Other microscopic hematuria Status: Acute Assessment and Plan: Await CT-abd/pelvis w/contrast Subjective Subjective Date/Time Seen: 12/03/21 07:12 No complaints Review of Systems Cardiovascular: Cardiovascular: Denies chest pain, Denies lightheadedness, Denies palpitations and Denies dyspnea Respiratory: Respiratory: Denies dyspnea Gastrointestinal: Gastrointestinal: Denies diarrhea, Denies nausea and Denies vomiting Genitourinary: Genitourinary: Denies hematuria and Denies dysuria Endocrine: Endocrine: Denies palpitations Exam Const: General: no acute distress Resp: Effort & Inspection: normal respiratory effort GI: Inspection: non-distended GI Palp: No abdominal tenderness and No Guarding due to palpation present (GI) Auscultation: normal bowel sounds Objective Data Vital Signs Vital Signs: Vital Signs - 24 hr 12/02/21 13:55 12/02/21 22:00 12/02/21 20:00 Temperature 96.5 F L 97.7 F Pulse Rate 77 73 Respiratory Rate 18 18 Blood Pressure 152/87 H 109/54 L Pulse Oximetry 98 96 Oxygen Delivery Room Air 12/03/21 05:46 Temperature 98.0 F Pulse Rate 64 Respiratory Rate 16 Blood Pressure 139/65 Pulse Oximetry 95 Oxygen Delivery Intake/Output Intake/Output: Intake & Output 11/30/21 12/01/21 12/02/21 12/03/21 23:59 23:59 23:59 23:59 Intake Total 3640 100 Output Total 700 800 Balance 2940 -700 Meds/Results Medications: Active Medications Generic Name Dose Route Start Last Admin Trade Name Freq PRN Reason Stop Dose Admin Dextrose/Sodium Chloride 1,000 mls @ 100 mls/hr 12/02/21 04:35 12/03/21 05:20 Dextrose 5% Sodium Chloride 0.45% IV CONT 100 mls/hr .Q10H VICKY Administration Acetaminophen 1,000 mg in 100 mls @ 400 mls/hr 12/02/21 12:38 12/03/21 03:38 Ofirmev 1,000 Mg Ivpb IVPB 12/03/21 12:37 Infused Q6H PRN Infusion Pain Rated 4-6 Ondansetron HCl 4 mg 12/02/21 02:17 Ondansetron Inj 4 Mg/2 Ml Vial IV PUSH Q4H PRN Nausea Pantoprazole Sodium 40 mg 12/03/21 09:00 Pantoprazole Sodium Iv 40 Mg Vial IV PUSH [facility] [place] Radiology Results: ITS Impressions Head CT 12/01/21 22:40 IMPRESSION: No acute intracranial process. Abdomen/Pelvis CT 12/02/21 09:06 IMPRESSION: 1. Diverticulosis without evidence of diverticulitis. 2. Mildly hyperattenuating material in the right renal pelvis, right kidney lower pole, and right ureter which could reflect urothelial lesion and/or hematoma. Brain MRI 12/02/21 09:55 IMPRESSION: 1. Normal aging brain. Labs Labs: Laboratory Results - last 24 hr 12/02/21 12/02/21 12/02/21 13:09 13:09 13:09 WBC 5.4 RBC 4.10 L Hgb 11.6 L Hct 36.3 L MCV 88.5 MCH 28.3 MCHC 32.0 RDW 14.6 H Plt Count 152 MPV 9.6 Immature Gran % (Auto) 0.4 Neut % (Auto) 73.0 Lymph % (Auto) 14.6 L Delta % (Auto) 9.4 H Eos % (Auto) 2.0 Baso % (Auto) 0.6 Lymph # (Auto) 0.79 L Delta # (Auto) 0.5 Eos # (Auto) 0.1 Baso # (Auto) 0.0 Abs Immat Gran (auto) 0.02 Absolute Neuts (auto) 4.0 Absolute Nucleated RBC 0.0 Nucleated RBC % 0.0 Sodium 142 Potassium 3.3 L Chloride 110 H Carbon Dioxide 28 Anion Gap 4 L BUN 22 H Creatinine 1.20 H Estim Creat Clear Calc 55 Estimated GFR 46 L Glucose 96 Lactic Acid Calcium 8.3 L Magnesium Total Bilirubin 0.7 AST 36 ALT 20 Alkaline Phosphatase 72 Total Protein 6.0 L Albumin 3.6 Lipase 16 L Urine Opiates Screen Urine Methadone Screen Ur Barbiturates Screen Ur Phencyclidine Scrn Ur Amphetamine Screen U Benzodiazepines Scrn Urine Cocaine Screen U Cannabinoids Screen 12/02/21 12/02/21 12/03/21 13:09 17:33 05:48 WBC 4.8 RBC 3.79 L Hgb 10.8 L Hct 33.5 L MC
[2021-12-03] MEDS: PANTOPRAZOLE SODIUM IV 40 MG VIAL IV PUSH (08:18)
[2021-12-03] MEDS: HYDROcodone/acetaminophen (*CRX) 5-325 MG TABLET 1 TAB PO ×2 (09:34→19:31)
[2021-12-03] MEDS: HYDROmorphone HCL INJ (*CRX) 1 MG/ML SYR 0.5 MG IV PUSH ×3 (11:47→20:55)
[2021-12-03 14:00] VITALS: BP 146/66; PULSE 59; RESP 16; TEMP 36.1; O2SAT 99
--- NOTE | 2021-12-03 15:42 | PM.IMPN ---
Progress Note: A&P Assessment and Plan (1) Altered mental status: Code(s): R41.82 - Altered mental status, unspecified Status: Acute Assessment and Plan: Patient with no focalization on physical exam CT of the head is normal MRI brain came back negative Likely medication related, will check urine drug screen Supportive care Continue IV fluids Tylenol for pain Will hold NSAIDs for now. Will also hold her gabapentin and other psychoactive medications 12/03/2021 interval history: patient with history of diverticulitis however CT scan of abdomen showed diverticulosis but no diverticulitis repeat CT scan of the abdomen and pelvis suspicious for kidney stone, will continue present manage will keep the patient and and switch her over to IV pain medication, patient be seen radiologist and further recommendation to follow. (2) Dizziness: Code(s): R42 - Dizziness and giddiness Status: Acute Assessment and Plan: Patient recently started on a combination of ciprofloxacin and Flagyl for diverticulitis treatment in the outpatient setting Suspect drug toxicity Also noted that all 3 blood cell lines have been affected as well white blood cells, red blood cells, and platelets. No signs of bleeding, no petechiae, no ecchymosis, hematomas. Holding Flagyl and ciprofloxacin Continue to monitor (3) Pancytopenia: Code(s): D61.818 - Other pancytopenia Status: Acute Assessment and Plan: Also 3 blood cell lines affected Will continue to monitor Continue to trend Avoid heparin products (4) Diverticulitis: Code(s): K57.92 - Diverticulitis of intestine, part unspecified, without perforation or abscess without bleeding Status: Acute Assessment and Plan: Abdomen is soft Doubtful of acute intra-abdominal catastrophe CT abdomen and pelvis is negative for diverticulitis shows evidence of diverticulosis Also shows some nonspecific abnormality in the right urinary tract likely some bleeding perhaps. Will consult Urology for further evaluation and recommendation UA does show some microscopic hematuria. She however does not have any complaint on the right side whatsoever. (5) Morbid obesity with BMI of 45.0-49.9, adult: Code(s): E66.01 - Morbid (severe) obesity due to excess calories; Z68.42 - Body mass index [BMI] 45.0-49.9, adult Status: Acute Assessment and Plan: Lifestyle and diet modification Subjective Date/time seen: 12/03/21 15:42 HPI: This is a 56-year-old female with past medical history significant for morbid obesity, generalized anxiety disorder, chronic pain, neuropathy, patient has recently placed on ciprofloxacin and Flagyl course in the outpatient setting she comes in to the emergency room after she has sudden onset dizziness while standing in her kitchen preparing in the evening meal patient is obtunded difficult to obtain history from her.? Preliminary workup has been essentially nonrevealing.? Patient is been placed in observation for further evaluation management and treatment. 12/03/2021 interval history: patient with history of diverticulitis however CT scan of abdomen showed diverticulosis but no diverticulitis repeat CT scan of the abdomen and pelvis suspicious for kidney stone, will continue present manage will keep the patient and and switch her over to IV pain medication, patient be seen radiologist and further recommendation to follow. Review of Systems Review of Systems: All systems reviewed & are unremarkable except as noted in HPI and below (HPI) ROS unobtainable: Yes unobtainable due to mental status (Obtundation, lethargy.) Exam Narrative: morbidly obese in pain Patient is comfortable, NAD HEENT: eyes are clear and none icteric LUNGS: normal respiratory effort ABD: distended Lower extremities: no edema SKIN: nonjaundiced Neuro: grossly intact. Objective Data Vital Signs Vital Signs: Vital Signs - 24 hr 12/02/21
[2021-12-03 21:29] VITALS: BP 142/74; PULSE 70; RESP 20; TEMP 37.6; O2SAT 96
[2021-12-04] MEDS: HYDROmorphone HCL INJ (*CRX) 1 MG/ML SYR 0.5 MG IV PUSH ×6 (00:56→20:47)
[2021-12-04] MEDS: DEXTROSE 5%/0.45% SOD CHL 1,000 ML 100 ML IV CONT ×2 (05:16→18:32)
[2021-12-04 06:00] VITALS: BP 145/65; PULSE 63; RESP 18; TEMP 36.8; O2SAT 95
--- NOTE | 2021-12-04 07:39 | P.PNUR_ITS ---
Progress Note: A&P Assessment and Plan (1) Microscopic hematuria: Code(s): R31.29 - Other microscopic hematuria Status: Acute Assessment and Plan: * CT abd/pelvis w/wo contrast -> normal upper tracts. * Should have outpatient cystoscopy, at some point, to complete hematuria evaluation. Subjective Subjective Date/Time Seen: 12/04/21 07:39 No voiding complaints Review of Systems Cardiovascular: Cardiovascular: Denies chest pain, Denies lightheadedness, Denies palpitations and Denies dyspnea Respiratory: Respiratory: Denies dyspnea Gastrointestinal: Gastrointestinal: Denies diarrhea, Denies nausea and Denies vomiting Genitourinary: Genitourinary: Denies hematuria and Denies dysuria Endocrine: Endocrine: Denies palpitations Objective Data Vital Signs Vital Signs: Vital Signs - 24 hr 12/03/21 08:18 12/03/21 14:00 12/03/21 21:29 Temperature 96.9 F L 99.6 F Pulse Rate 59 L 70 Respiratory Rate 16 20 Blood Pressure 146/66 H 142/74 H Pulse Oximetry 99 96 Oxygen Delivery Room Air 12/04/21 06:00 Temperature 98.2 F Pulse Rate 63 Respiratory Rate 18 Blood Pressure 145/65 H Pulse Oximetry 95 Oxygen Delivery Intake/Output Intake/Output: Intake & Output 12/01/21 12/02/21 12/03/21 12/04/21 23:59 23:59 23:59 23:59 Intake Total 3640 1560 1740 Output Total 700 2950 1700 Balance 2940 -1390 40 Meds/Results Medications: Active Medications Generic Name Dose Route Start Last Admin Trade Name Freq PRN Reason Stop Dose Admin Hydrocodone Bitart/Acetaminophen 1 tab 12/03/21 08:46 12/03/21 19:31 Hydrocodone/Acetaminophen (*Crx) 5-325 Mg Tablet PO 1 tab Q6H PRN Administration Pain Rated 4-6 Hydromorphone HCl 0.5 mg 12/03/21 11:23 12/04/21 05:17 Hydromorphone Hcl Inj (*Crx) 1 Mg/Ml Syr IV PUSH 0.5 mg Q4H PRN Administration Pain Rated 7-10 Dextrose/Sodium Chloride 1,000 mls @ 100 mls/hr 12/02/21 04:35 12/04/21 05:16 Dextrose 5% Sodium Chloride 0.45% IV CONT 100 mls/hr .Q10H VICKY Administration Ondansetron HCl 4 mg 12/02/21 02:17 Ondansetron Inj 4 Mg/2 Ml Vial IV PUSH Q4H PRN Nausea Pantoprazole Sodium 40 mg 12/03/21 09:00 12/03/21 08:18 Pantoprazole Sodium Iv 40 Mg Vial IV PUSH 40 mg QAM VICKY Administration Radiology Results: ITS Impressions Head CT 12/01/21 22:40 IMPRESSION: No acute intracranial process. Brain MRI 12/02/21 09:55 IMPRESSION: 1. Normal aging brain. Abdomen/Pelvis CT 12/03/21 10:58 IMPRESSION: 1. No suspicious renal or urothelial lesion identified. 2. Punctate left nephrolithiasis.
[2021-12-04 08:00] VITALS: O2SAT 99
[2021-12-04] MEDS: PANTOPRAZOLE SODIUM IV 40 MG VIAL IV PUSH (09:21)
[2021-12-04] MEDS: HYDROcodone/acetaminophen (*CRX) 5-325 MG TABLET 1 TAB PO (11:28)
[2021-12-04 14:00] VITALS: BP 144/82; PULSE 57; RESP 16; TEMP 36.4; O2SAT 99
--- NOTE | 2021-12-04 16:46 | PM.IMPN ---
Progress Note: A&P Assessment and Plan (1) Altered mental status: Code(s): R41.82 - Altered mental status, unspecified Status: Acute Assessment and Plan: Patient with no focalization on physical exam CT of the head is normal MRI brain came back negative Likely medication related, will check urine drug screen Supportive care Continue IV fluids Tylenol for pain Will hold NSAIDs for now. Will also hold her gabapentin and other psychoactive medications 12/03/2021 interval history: patient with history of diverticulitis however CT scan of abdomen showed diverticulosis but no diverticulitis repeat CT scan of the abdomen and pelvis suspicious for kidney stone, will continue present manage will keep the patient and and switch her over to IV pain medication, patient be seen radiologist and further recommendation to follow. 12/04/2021 interval history: patient with history of diverticulitis however CT scan of abdomen showed diverticulosis but no diverticulitis repeat CT scan of the abdomen and pelvis suspicious for kidney stone, however patient was seen by Nephrology and did not suspect kidney stone, patient continued to complain of left flank pain, to further evaluate will do the x-ray of lumbar spine and possibly MRI, patient patient is receiving Dilaudid 0.5 mg every 4 hours her pain is not controlled, will add oral pain medication to supplement, will continue present manage and further recommendation to follow. (2) Dizziness: Code(s): R42 - Dizziness and giddiness Status: Acute Assessment and Plan: Patient recently started on a combination of ciprofloxacin and Flagyl for diverticulitis treatment in the outpatient setting Suspect drug toxicity Also noted that all 3 blood cell lines have been affected as well white blood cells, red blood cells, and platelets. No signs of bleeding, no petechiae, no ecchymosis, hematomas. Holding Flagyl and ciprofloxacin Continue to monitor (3) Pancytopenia: Code(s): D61.818 - Other pancytopenia Status: Acute Assessment and Plan: Also 3 blood cell lines affected Will continue to monitor Continue to trend Avoid heparin products (4) Diverticulitis: Code(s): K57.92 - Diverticulitis of intestine, part unspecified, without perforation or abscess without bleeding Status: Acute Assessment and Plan: Abdomen is soft Doubtful of acute intra-abdominal catastrophe CT abdomen and pelvis is negative for diverticulitis shows evidence of diverticulosis Also shows some nonspecific abnormality in the right urinary tract likely some bleeding perhaps. Will consult Urology for further evaluation and recommendation UA does show some microscopic hematuria. She however does not have any complaint on the right side whatsoever. (5) Morbid obesity with BMI of 45.0-49.9, adult: Code(s): E66.01 - Morbid (severe) obesity due to excess calories; Z68.42 - Body mass index [BMI] 45.0-49.9, adult Status: Acute Assessment and Plan: Lifestyle and diet modification Subjective Date/time seen: 12/04/21 16:46 12/04/2021 interval history: patient with history of diverticulitis however CT scan of abdomen showed diverticulosis but no diverticulitis repeat CT scan of the abdomen and pelvis suspicious for kidney stone, however patient was seen by Nephrology and did not suspect kidney stone, patient continued to complain of left flank pain, to further evaluate will do the x-ray of lumbar spine and possibly MRI, patient patient is receiving Dilaudid 0.5 mg every 4 hours her pain is not controlled, will add oral pain medication to supplement, will continue present manage and further recommendation to follow. Review of Systems Review of Systems: All systems reviewed & are unremarkable except as noted in HPI and below (HPI) Exam Narrative: morbidly obese in pain Patient is comfortable, NAD HEENT: eyes are clear and none icteric LUNGS: normal
[2021-12-04 21:00] VITALS: BP 155/81; PULSE 66; RESP 18; TEMP 36.8; O2SAT 100
[2021-12-05] MEDS: HYDROmorphone HCL INJ (*CRX) 1 MG/ML SYR 0.5 MG IV PUSH ×2 (00:33→04:27)
[2021-12-05 06:00] VITALS: BP 138/77; PULSE 61; RESP 18; TEMP 36.3; O2SAT 95
[2021-12-05 08:00] VITALS: O2SAT 98
[2021-12-05] MEDS: HYDROcodone/acetaminophen (*CRX) 5-325 MG TABLET 1 TAB PO (08:55)
[2021-12-05] MEDS: ERGOCALCIFEROL 50,000 UNIT CAPSULE 50000 UNITS PO (10:14)
[2021-12-05] MEDS: PANTOPRAZOLE SODIUM IV 40 MG VIAL IV PUSH (10:14)
[2021-12-05] MEDS: metroNIDAZOLE 250 MG TABLET 500 MG PO (10:14)
[2021-12-05] MEDS: methylPREDNISolone SOD SUCC 125 MG VIAL IV PUSH (10:14)
[2021-12-05] MEDS: SOLIFENACIN 5 MG TABLET 10 MG PO (10:15)
[2021-12-05] MEDS: IBUPROFEN 400 MG TABLET 800 MG PO (10:15)
[2021-12-05] MEDS: busPIRone HCL 10 MG TABLET PO (10:16)
[2021-12-05] MEDS: GABAPENTIN 400 MG CAPSULE PO (10:16)
[2021-12-05] MEDS: traMADol HCL (*CRX) 50 MG TABLET PO (11:12)
--- NOTE | 2021-12-05 12:24 | PM.DS ---
DS: Admitting Diagnosis Discharge Date 12/05/2021 Admitting Diagnosis altered mental status DS: Discharge Diagnosis Discharge Diagnosis (1) Altered mental status: Code(s): R41.82 - Altered mental status, unspecified Status: Acute Assessment and Plan: Patient with no focalization on physical exam CT of the head is normal MRI brain came back negative Likely medication related, will check urine drug screen Supportive care Continue IV fluids Tylenol for pain Will hold NSAIDs for now. Will also hold her gabapentin and other psychoactive medications 12/03/2021 interval history: patient with history of diverticulitis however CT scan of abdomen showed diverticulosis but no diverticulitis repeat CT scan of the abdomen and pelvis suspicious for kidney stone, will continue present manage will keep the patient and and switch her over to IV pain medication, patient be seen radiologist and further recommendation to follow. 12/04/2021 interval history: patient with history of diverticulitis however CT scan of abdomen showed diverticulosis but no diverticulitis repeat CT scan of the abdomen and pelvis suspicious for kidney stone, however patient was seen by Nephrology and did not suspect kidney stone, patient continued to complain of left flank pain, to further evaluate will do the x-ray of lumbar spine and possibly MRI, patient patient is receiving Dilaudid 0.5 mg every 4 hours her pain is not controlled, will add oral pain medication to supplement, will continue present manage and further recommendation to follow. (2) Dizziness: Code(s): R42 - Dizziness and giddiness Status: Acute Assessment and Plan: Patient recently started on a combination of ciprofloxacin and Flagyl for diverticulitis treatment in the outpatient setting Suspect drug toxicity Also noted that all 3 blood cell lines have been affected as well white blood cells, red blood cells, and platelets. No signs of bleeding, no petechiae, no ecchymosis, hematomas. Holding Flagyl and ciprofloxacin Continue to monitor (3) Pancytopenia: Code(s): D61.818 - Other pancytopenia Status: Acute Assessment and Plan: Also 3 blood cell lines affected Will continue to monitor Continue to trend Avoid heparin products (4) Diverticulitis: Code(s): K57.92 - Diverticulitis of intestine, part unspecified, without perforation or abscess without bleeding Status: Acute Assessment and Plan: Abdomen is soft Doubtful of acute intra-abdominal catastrophe CT abdomen and pelvis is negative for diverticulitis shows evidence of diverticulosis Also shows some nonspecific abnormality in the right urinary tract likely some bleeding perhaps. Will consult Urology for further evaluation and recommendation UA does show some microscopic hematuria. She however does not have any complaint on the right side whatsoever. (5) Morbid obesity with BMI of 45.0-49.9, adult: Code(s): E66.01 - Morbid (severe) obesity due to excess calories; Z68.42 - Body mass index [BMI] 45.0-49.9, adult Status: Acute Assessment and Plan: Lifestyle and diet modification DS: Summary Hospital Course Reason for hospitalization: Altered mental status Narrative: This is a 56-year-old female with past medical history significant for morbid obesity, generalized anxiety disorder, chronic pain, neuropathy, patient has recently placed on ciprofloxacin and Flagyl course in the outpatient setting she comes in to the emergency room after she has sudden onset dizziness while standing in her kitchen preparing in the evening meal patient is obtunded difficult to obtain history from her.? Preliminary workup has been essentially nonrevealing.? Patient is been placed in observation for further evaluation management and treatment. Hospital Course: ?patient with history of diverticulitis however CT scan of abdomen showed diverticulosis but no diverticulitis repeat CT sca
== END 2021-12-05 13:20 | disposition home or self-care (01) | DRG 948 ==
LOC: ANHED 12-02 02:34 → ANH3MEDSUR 12-02 03:04
PROVIDERS: Internal Medicine; Physician Assistant; Admitting Provider Internal Medicine; Emergency Provider Emergency Medicine; PCP Physician Assistant; Visit Provider Family Medicine
DX: R41.82 Altered mental status, unspecified (principal); D61.818 Other pancytopenia; Z68.42 Body mass index [BMI] 45.0-49.9, adult; R42 Dizziness and giddiness; T36.8X5A Adverse effect of other systemic antibiotics, initial encounter; T37.3X5A Adverse effect of other antiprotozoal drugs, initial encounter; N20.0 Calculus of kidney; E66.01 Morbid (severe) obesity due to excess calories; K57.90 Diverticulosis of intestine, part unspecified, without perforation or abscess without bleeding; M19.90 Unspecified osteoarthritis, unspecified site; R31.29 Other microscopic hematuria; M54.50 Low back pain, unspecified; G62.9 Polyneuropathy, unspecified; F41.1 Generalized anxiety disorder
CPT/HCPCS: 36415; 70450; 70553; 72100; 74176; 74178; 80053; 80307; 81001; 83605; 83690; 83735; 84484; 85025; 85610; 85730; 88108; 93005; 96361; 96374; 96375; 96376; 99285; A9270; A9577; C9113; G0378; J0131; J1170; J2405; J2930; J7030; Q9967

== ENCOUNTER 2024-11-08 07:00 | Outpatient (CLI) | payer BC, SELFPAY ==
--- NOTE | ~2024-11-08 | MR_ITS ---
MRI of the right foot CLINICAL HISTORY: Plantar fascial fibromatosis TECHNIQUE: Axial proton-density and proton-density fat-sat images, sagittal T1-weighted and STIR imag es, and coronal T1-weighted and proton-density fat-sat images were performed. FINDINGS: There is probable severe pes planus deformity with advanced degenerative changes involving the calcaneocuboid joint, subtalar joint, talonavicular articulation, with extensive marrow edema and areas of subchondral cystic change. Findings are suggestive of Charcot foot/neuropathic foot. Small tibiotalar joint effusion present. Medial flexor tendons at the ankle are grossly intact, as are the peroneal tendons. Achilles tendon i ntact. Anterior extensor tendons appear intact. Plantar fascia is unremarkable. No soft tissue mass evident along the plantar fascia. No fluid collec tion evident. IMPRESSION: Findings most compatible with advanced Charcot foot involving the hindfoot and midfoot articulations, as detailed above. No soft tissue mass or distinct evidence for osteomyelitis or abscess. Reviewed, dictated and finalized at location .
== END 2024-11-08 07:01 | disposition home or self-care (01) ==
LOC: MICIMG 07:04
PROVIDERS: PCP Family Medicine; Visit Provider Podiatrist Foot & Ankle Surgery
DX: M72.2 Plantar fascial fibromatosis (principal); M76.821 Posterior tibial tendinitis, right leg; M66.371 Spontaneous rupture of flexor tendons, right ankle and foot
CPT/HCPCS: 73718